=== PATIENT | female | born 1955 | race Caucasian/White ===

== ENCOUNTER 2019-04-23 07:37 | Outpatient (CLI) | payer MEDICARE, OTHER, SELFPAY ==
--- NOTE | 2019-04-23 13:11 | PFTS_ITS ---
Date of Study:04/23/2019 Date of Dictation: MECHANICS: Forced vital capacity (FVC) is normal. Forced expiratory volume in one second (FEV1) is normal. FEV1/FVC is normal. FLOW VOLUME LOOP: Normal. LUNG VOLUMES: Total lung capacity (TLC) is normal. Residual volume (RV) is normal. DIFFUSING CAPACITY FOR CARBON MONOXIDE: Mildly reduced. INTERPRETATION: The pulmonary function tests are normal. Normal lung volumes. Gas exchange (DLCO) is mildly reduced. The DLCO has not been adjusted to the patient's hemoglobin. MTDD
== END 2019-04-23 07:38 | disposition home or self-care (01) ==
PROVIDERS: PCP Family Medicine; Visit Provider Family Medicine
DX: R06.09 Other forms of dyspnea (principal)
CPT/HCPCS: 94010; 94726; 94729

== ENCOUNTER 2019-04-25 14:22 | Emergency (ER) | payer MEDICARE, OTHER, SELFPAY ==
[2019-04-25 14:28] VITALS: BP 160/101; PULSE 78; RESP 20; TEMP 36.7; O2SAT 100; BMI 31.6
--- NOTE | 2019-04-25 14:28 | ED_ITS ---
Entered by Laney Garcia, acting as scribe for Documented by User: Radhika Riddle DO 04/25/19 15:21 HPI - Chest Pain General: Chief Complaint: Chest Pain Stated Complaint: cp Time Seen by Provider: 04/25/19 14:27 Source: patient Mode of arrival: ambulatory Limitations: no limitations History of Present Illness: HPI narrative: 63 yo f came to the er pov for chest pain. Onset was today. Pt states that she has a sharp pain that goes across her chest. Pt said that she was just setting in her chair when she got the sharp pain. She said that she was nauseated and short of breath when that happens. Pt said that this happened first 11/2017. Pt said that the only thing that makes this worse is laying down or taking a deep breath. Pt was diagnosed with the flu about 3 weeks ago. Pts PCP is . complaint: chest pain Timing of current episode: episodic Prior episodes: Yes Onset: during rest Pain location: substernal Pain radiation: none Severity: mild Quality: sharp Relieving factors: nothing Exacerbating factors: other (taking a deep breath and laying down) Context: recent illness (flu) Associated symptoms: Reports dyspnea and nausea; Deny fever(s) Treatment prior to arrival: none Risk Factors: Coronary artery disease risk factors: none Thoracic aortic dissection risk factors: none Related Data: On Oral Contraceptives: No Review of Systems General: Reports: other (negative unless marked) Const: Denies: fever, chills or fatigue ENMT: Denies: throat pain Card: Reports: chest pain and shortness of breath when lying down Resp: Reports: shortness of breath GI: Reports: nausea : Denies: difficulty urinating Musc: Denies: back pain or extremity swelling Skin/Breast: Denies: rash Neuro: Denies: headache, numbness in extremities or weakness in extremities PFSH ED PFSH: Social History Smoking and tobacco status: never smoked Physical Exam Const: COMMON NORMALS: no apparent distress and oriented x3 GENERAL APPEARANCE: cooperative; not in distress HENMT: COMMON NORMALS: normocephalic HEAD & SCALP: normal to inspection and normocephalic MOUTH: oral and palatal mucosa normal and lip normal THROAT: posterior oropharynx normal and tonsils normal Neck/C-Spine: COMMON NORMALS: full ROM, no lymphadenopathy, supple and no meningeal signs GENERAL: Yes normal visual inspection and Yes trachea midline Resp: COMMON NORMALS: normal respiratory effort and clear to auscultation bilaterally EFFORT & INSPECTION: Yes able to speak in complete sentences and No respiratory distress AUSCULTATION: clear to auscultation bilaterally, no rales, no rhonchi and no wheezes Cardio: COMMON NORMALS: regular rate and regular rhythm PALPATION: abnormal PMI (sternum) RATE: regular rate RHYTHM: regular rhythm PERIPHERAL PULSES: radial pulses present and dorsalis pedis pulses present GI: COMMON NORMALS: normal to inspection, nondistended, normoactive bowel sounds and soft to palpation INSPECTION: Yes normal to inspection AUSCULTATION: Yes normoactive bowel sounds PALPATION: Yes soft RECTAL EXAM: deferred : COMMON NORMALS: Yes no CVA tenderness BLADDER/KIDNEY EXAM: Yes no CVA tenderness Back/Pelvis: COMMON NORMALS: no CVA tenderness Extremity: COMMON NORMALS: normal to inspection, full ROM, normal capillary refill, no calf tenderness and no pedal edema Neuro: COMMON NORMALS: oriented x3, CN's II-XII intact bilaterally, moves all extremities and no focal motor deficits MENINGEAL SIGNS: Yes no meningeal signs Skin: COMMON NORMALS: no rashes or lesions noted GENERAL SKIN EXAM: no rashes or lesions noted Course Vital Signs: Vital signs: Vital Signs Temperature 98.1 F 04/25/19 14:28 Pulse Rate 74 04/25/19 18:00 Respiratory Rate 18 04/25/19 18:00 Blood Pressure 141/98 04/25/19 18:00 Pulse Oximetry 96 04/25/19 18:00 MDM - Chest Pain MDM Narrative: Medical decision making narrative: pts HEART score is a 4, however her ecg abnl are unchanged from an ecg done in 12/08/17. her initial trop is very low at 6. her d dimer is negative, Lab Data: Attestation: I reviewed the patient's lab results. Labs: Lab Results 04/25/19 04/25/19 04/25/19 Range/Units 14:48 14:48 14:48 WBC 8.5 (4.0-10.0) 10^3/ uL RBC 4.39 (4.1-5.3) 10^6/u L Hgb 12.8 (11.5-15.3) g/dL Hct 39.7 (37.0-47.0) % MCV 90.4 (81-99) fL MCH 29.2 (28.0-34.0) pg MCHC 32.2 (30.0-36.0) g/dL RDW 13.2 (12.1-15.1) % Plt Count 272 (130-400) 10^3/c mm MPV 10.2 (7.4-10.4) fL Neut % (Auto) 79.6 % Lymph % (Auto) 14.0 % Summers % (Auto) 5.4 % Eos % (Auto) 0.6 % Baso % (Auto) 0.2 % Neut # (Auto) 6.7 (1.8-7.7) 10^3/u L Lymph # (Auto) 1.2 (0.8-4.8) 10^3/u L Summers # (Auto) 0.5 (0.2-0.9) 10^3/u L Eos # (Auto) 0.1 (0.0-0.8) 10^3/u L Baso # (Auto) 0.0 (0.0-0.1) 10^3/u L Nucleated RBC % (a uto) 0 % Nucleated RBCs # 0.0 /100WBC D-Dimer <= 0.27 (0-0.59) ug/mIFE U Sodium 139 (136-145) mmol/L Potassium 3.4 L (3.5-5.1) mmol/L Chloride 100 (98-107) mmol/L Carbon Dioxide 25 (22-29) mmol/L Anion Gap 17.4 (5-19) BUN 22 (8-23) mg/dL Creatinine 0.7 (0.5-0.9) mg/dL GFR Calculation 84.0 L (90-130) mL/min Glucose 111 (65-115) mg/dL Calculated Osmolal ity 285 (285-295) mOsm/k g Calcium 10.0 (8.5-10.5) mg/dL Total Bilirubin 0.4 (0.15-1.2) mg/dL AST 15 (0-32) U/L ALT 19 (0-33) U/L Alkaline Phosphata se 75 (35-105) IU/L Troponin T Baselin e (0-10) ng/mL Troponin T 120 Min poarch (0-10) ng/mL Delta Troponin T (0-10) ABS# Total Protein 7.2 (6.6-8.7) g/dL Albumin 4.5 (3.5-5.2) g/dL Globulin 2.7 (1.3-4.6) g/dL 04/25/19 04/25/19 Range/Units 14:48 16:40 WBC (4.0-10.0) 10^3/ uL RBC (4.1-5.3) 10^6/u L Hgb (11.5-15.3) g/dL Hct (37.0-47.0) % MCV (81-99) fL MCH (28.0-34.0) pg MCHC (30.0-36.0) g/dL RDW (12.1-15.1) % Plt Count (130-400) 10^3/c mm MPV (7.4-10.4) fL Neut % (Auto) % Lymph % (Auto) % Summers % (Auto) % Eos % (Auto) % Baso % (Auto) % Neut # (Auto) (1.8-7.7) 10^3/u L Lymph # (Auto) (0.8-4.8) 10^3/u L Summers # (Auto) (0.2-0.9) 10^3/u L Eos # (Auto) (0.0-0.8) 10^3/u L Baso # (Auto) (0.0-0.1) 10^3/u L Nucleated RBC % (a uto) % Nucleated RBCs # /100WBC D-Dimer (0-0.59) ug/mIFE U Sodium (136-145) mmol/L Potassium (3.5-5.1) mmol/L Chloride (98-107) mmol/L Carbon Dioxide (22-29) mmol/L Anion Gap (5-19) BUN (8-23) mg/dL Creatinine (0.5-0.9) mg/dL GFR Calculation (90-130) mL/min Glucose (65-115) mg/dL Calculated Osmolal ity (285-295) mOsm/k g Calcium (8.5-10.5) mg/dL Total Bilirubin (0.15-1.2) mg/dL AST (0-32) U/L ALT (0-33) U/L Alkaline Phosphata se (35-105) IU/L Troponin T Baselin e 6 (0-10) ng/mL Troponin T 120 Min poarch 6.00 (0-10) ng/mL Delta Troponin T 0 (0-10) ABS# Total Protein (6.6-8.7) g/dL Albumin (3.5-5.2) g/dL Globulin (1.3-4.6) g/dL Imaging Data^: CXR: Radiologist's impression: [address] [address] XRay Report Signed Patient: Anne Alexis IUnit #: [id number] : 4Acct#:[id number] Age/Sex: 63 / FADM Date: 04/25/19 Loc: ERRoom/Bed: Attending Dr: Ordering Provider/Ordering MD: Radhika Riddle DO Date of Service: 04/25/19 Procedure(s): XR chest 1V portable [id number] Accession Number(s): [id number] Report Number: [id number] PROCEDURE INFORMATION: Exam: XR Chest, 1 View Exam date and time: 04/25/2019 2:42 PM Age: 63 years old Clinical indication: Pain; Chest pressure; Additional info: Chest pain TECHNIQUE: Imaging protocol: XR of the chest Views: 1 view. COMPARISON: CR Chest 1 [place] [id number] 12/08/2017 6:24 PM FINDINGS: Lungs: No focal consolidation. Pleural space: No significant pleural effusion. No discernible pneumothorax. Heart/Mediastinum: No cardiomegaly. Bones/joints: Unremarkable for technique. XR/XR chest 1V portable [id number] IMPRESSION: No acute findings. Dictated By:Anjel Cooper MD Signed By:Anjel Cooper MDSigned Date/Time:04/25/191554 DD/ 53 Discharge Plan Discharge Patient Disposition: Home, Self-Care Clinical Impression: Atypical chest pain Condition: Stable Prescriptions: New Adult Aspirin Regimen 81 mg tablet,delayed release (DR/EC) 81 mg PO DAILY Qty: 30 RF: 0 No Action bupropion HCl 100 mg tablet sustained-release 12 hr 100 mg PO QAM RF: 0 losartan-hydrochlorothiazide 50-12.5 mg tablet 1 tab PO DAILY RF: 0 escitalopram oxalate 5 mg tablet 5 mg PO DAILY RF: 0 Discharge Orders: Discharge Order (Routine); Ordered 04/25/19 Ordered By: Francisco Peñaloza Referrals: Carlee Gutierrez MD [Primary Care Provider] - Discharge Diet: Usual diet Discharge Activity: Limit activity as instructed Activity Restrictions/Additional Instructions: Case management will call to set up a stress test. Discharge Date/Time: 04/25/19 18:00 Sign Out Sign Out Data: Patient Sign Out occurred on 04/25/19 at 16:50. Patient's care was discussed, and care was transferred from Radhika Ferrara DO to Francisco Peñaloza DO. Sign Out Comment: waiting for 2 hour troponin, will likely need an outpt stress test Last updated by Radhika Riddle DO at 04/25/19 16:21 Coding Level of Care Code ED Administrative Support Associate for Chg Fwd Exam Comprehensive Documented by User: Francisco Peñaloza DO 04/27/19 01:05 HPI - Chest Pain General: Chief Complaint: Chest Pain Stated Complaint: cp Time Seen by Provider: 04/25/19 14:27 History of Present Illness: HPI narrative: Care assumed at change of shift Dr. Riddle's notes and exam reviewed [facility] ED PFSH: Social History Smoking and tobacco status: never smoked Physical Exam Const: COMMON NORMALS: average body habitus, oriented x3 and alert GENERAL APPEARANCE: cooperative, comfortable, well kempt and well developed NUTRITIONAL APPEARANCE: obese ORIENTATION/CONSCIOUSNESS: Yes awake, Yes oriented to person and Yes oriented to place Neck/C-Spine: COMMON NORMALS: no meningeal signs Resp: COMMON NORMALS: normal respiratory effort, no retractions, no use of accessory muscles and clear to auscultation bilaterally AUSCULTATION: clear to auscultation bilaterally Cardio: COMMON NORMALS: regular rate and regular rhythm RATE: regular rate RHYTHM: regular rhythm HEART SOUNDS: no murmurs GI: COMMON NORMALS: normal to inspection, nondistended, normoactive bowel sounds, soft to palpation and no hepatosplenomegaly PALPATION: Yes soft and Yes no hepatosplenomegaly Extremity: COMMON NORMALS: no clubbing, cyanosis or edema, no calf tenderness and no pedal edema Neuro: COMMON NORMALS: oriented x3 SENSORIUM/ORIENTATION: Yes alert, Yes oriented to person and Yes oriented to place MENINGEAL SIGNS: Yes no meningeal signs Psych: APPEARANCE: Yes well kempt Course ED course: Care assumed a change of shift from Dr. Riddle. Chart reviewed. Second troponin is also negative discussed with the patient states that she had a stress test done about a year ago that was incomplete because he stopped it because she had leg pain and she never had any further follow-up. This time she is doing well I think we can go ahead and discharge her home we will get a get her set up for a sestamibi stress test as an outpatient have her take aspirin daily return if she has problems. Vital Signs: Vital signs: Vital Signs Temperature 98.1 F 04/25/19 14:28 Pulse Rate 74 04/25/19 18:00 Respiratory Rate 18 04/25/19 18:00 Blood Pressure 141/98 04/25/19 18:00 Pulse Oximetry 96 04/25/19 18:00 MDM - Chest Pain Lab Data: Labs: Lab Results 04/25/19 04/25/19 04/25/19 Range/Units 14:48 14:48 14:48 WBC 8.5 (4.0-10.0) 10^3/ uL RBC 4.39 (4.1-5.3) 10^6/u L Hgb 12.8 (11.5-15.3) g/dL Hct 39.7 (37.0-47.0) % MCV 90.4 (81-99) fL MCH 29.2 (28.0-34.0) pg MCHC 32.2 (30.0-36.0) g/dL RDW 13.2 (12.1-15.1) % Plt Count 272 (130-400) 10^3/c mm MPV 10.2 (7.4-10.4) fL Neut % (Auto) 79.6 % Lymph % (Auto) 14.0 % Summers % (Auto) 5.4 % Eos % (Auto) 0.6 % Baso % (Auto) 0.2 % Neut # (Auto) 6.7 (1.8-7.7) 10^3/u L Lymph # (Auto) 1.2 (0.8-4.8) 10^3/u L Summers # (Auto) 0.5 (0.2-0.9) 10^3/u L Eos # (Auto) 0.1 (0.0-0.8) 10^3/u L Baso # (Auto) 0.0 (0.0-0.1) 10^3/u L Nucleated RBC % (a uto) 0 % Nucleated RBCs # 0.0 /100WBC D-Dimer <= 0.27 (0-0.59) ug/mIFE U Sodium 139 (136-145) mmol/L Potassium 3.4 L (3.5-5.1) mmol/L Chloride 100 (98-107) mmol/L Carbon Dioxide 25 (22-29) mmol/L Anion Gap 17.4 (5-19) BUN 22 (8-23) mg/dL Creatinine 0.7 (0.5-0.9) mg/dL GFR Calculation 84.0 L (90-130) mL/min Glucose 111 (65-115) mg/dL Calculated Osmolal ity 285 (285-295) mOsm/k g Calcium 10.0 (8.5-10.5) mg/dL Total Bilirubin 0.4 (0.15-1.2) mg/dL AST 15 (0-32) U/L ALT 19 (0-33) U/L Alkaline Phosphata se 75 (35-105) IU/L Troponin T Baselin e (0-10) ng/mL Troponin T 120 Min poarch (0-10) ng/mL Delta Troponin T (0-10) ABS# Total Protein 7.2 (6.6-8.7) g/dL Albumin 4.5 (3.5-5.2) g/dL Globulin 2.7 (1.3-4.6) g/dL 04/25/19 04/25/19 Range/Units 14:48 16:40 WBC (4.0-10.0) 10^3/ uL RBC (4.1-5.3) 10^6/u L Hgb (11.5-15.3) g/dL Hct (37.0-47.0) % MCV (81-99) fL MCH (28.0-34.0) pg MCHC (30.0-36.0) g/dL RDW (12.1-15.1) % Plt Count (130-400) 10^3/c mm MPV (7.4-10.4) fL Neut % (Auto) % Lymph % (Auto) % Summers % (Auto) % Eos % (Auto) % Baso % (Auto) % Neut # (Auto) (1.8-7.7) 10^3/u L Lymph # (Auto) (0.8-4.8) 10^3/u L Summers # (Auto) (0.2-0.9) 10^3/u L Eos # (Auto) (0.0-0.8) 10^3/u L Baso # (Auto) (0.0-0.1) 10^3/u L Nucleated RBC % (a uto) % Nucleated RBCs # /100WBC D-Dimer (0-0.59) ug/mIFE U Sodium (136-145) mmol/L Potassium (3.5-5.1) mmol/L Chloride (98-107) mmol/L Carbon Dioxide (22-29) mmol/L Anion Gap (5-19) BUN (8-23) mg/dL Creatinine (0.5-0.9) mg/dL GFR Calculation (90-130) mL/min Glucose (65-115) mg/dL Calculated Osmolal ity (285-295) mOsm/k g Calcium (8.5-10.5) mg/dL Total Bilirubin (0.15-1.2) mg/dL AST (0-32) U/L ALT (0-33) U/L Alkaline Phosphata se (35-105) IU/L Troponin T Baselin e 6 (0-10) ng/mL Troponin T 120 Min poarch 6.00 (0-10) ng/mL Delta Troponin T 0 (0-10) ABS# Total Protein (6.6-8.7) g/dL Albumin (3.5-5.2) g/dL Globulin (1.3-4.6) g/dL Discharge Plan Discharge Patient Disposition: Home, Self-Care Clinical Impression: Atypical chest pain Condition: Stable Prescriptions: New Adult Aspirin Regimen 81 mg tablet,delayed release (DR/EC) 81 mg PO DAILY Qty: 30 RF: 0 No Action bupropion HCl 100 mg tablet sustained-release 12 hr 100 mg PO QAM RF: 0 losartan-hydrochlorothiazide 50-12.5 mg tablet 1 tab PO DAILY RF: 0 escitalopram oxalate 5 mg tablet 5 mg PO DAILY RF: 0 Discharge Orders: Discharge Order (Routine); Ordered 04/25/19 Ordered By: Francisco Peñaloza Referrals: Carlee Gutierrez MD [Primary Care Provider] - Discharge Diet: Usual diet Discharge Activity: Limit activity as instructed Activity Restrictions/Additional Instructions: Case management will call to set up a stress test. Discharge Date/Time: 04/25/19 18:00 Sign Out Sign Out Data: Patient Sign Out occurred on 04/25/19 at 16:50. Patient's care was discussed, and care was transferred from Radhika Ferrara DO to Francisco Peñaloza DO. Sign Out Comment: waiting for 2 hour troponin, will likely need an outpt stress test Last updated by Radhika Riddle DO at 04/25/19 16:21 Coding Level of Care Code ED Administrative Support Associate for Chg Fwd Exam Comprehensive The documentation recorded by the [facility] Stephanie Lyn, accurately reflects the service I personally performed and the decisions made by , Radhika Riddle DO Apr 25, 2019 14:22
--- NOTE | 2019-04-25 14:40 | ECG_ITS ---
Measurements Intervals [place] Rate: 71 P: 62 KS: 151 QRS: 19 QRSD: 79 T: -2 QT: 365 QTc: [address] DEVIATION AND MODERATE T-WAVE ABNORMALITY, CONSIDER ANTEROLATERAL ISCHEMIA [-0 [-0.1+ mV T WAVE IN V3-V6] ST DEVIATION AND MODERATE T-WAVE ABNORMALITY, CONSIDER INFERIOR ISCHEMIA [-0.1+ mV T WAVE IN II/aVF] Compared to ECG 12/08/2017 17:44:07 No significant changes Electronically Signed On 04-26-2019 17:20:42 CDT by Brennen Keita M.D. [email or web address]
--- NOTE | 2019-04-25 14:40 | XRR_ITS ---
PROCEDURE INFORMATION: Exam: XR Chest, 1 View Exam date and time: 04/25/2019 2:42 PM Age: 63 years old Clinical indication: Pain; Chest pressure; Additional info: Chest pain TECHNIQUE: Imaging protocol: XR of the chest Views: 1 view. COMPARISON: CR Chest 1 [place] [id number] 12/08/2017 6:24 PM FINDINGS: Lungs: No focal consolidation. Pleural space: No significant pleural effusion. No discernible pneumothorax. Heart/Mediastinum: No cardiomegaly. Bones/joints: Unremarkable for technique. XR/XR chest 1V portable [id number] IMPRESSION: No acute findings.
[2019-04-25 14:55] LABS: Basophils % 0.2 %; Eosinophils # 0.1 10^3/uL (0.0-0.8); Eosinophils % 0.6 %; Hematocrit 39.7 % (37.0-47.0); Hemoglobin 12.8 g/dL (11.5-15.3); Lymphocytes # 1.2 10^3/uL (0.8-4.8); Mean Corpuscular HGB Conc 32.2 g/dL (30.0-36.0); Mean Corpuscular Hemoglobin 29.2 pg (28.0-34.0); Mean Corpuscular Volume 90.4 fL (81-99); Mean Platelet Volume 10.2 fL (7.4-10.4); Monocytes # 0.5 10^3/uL (0.2-0.9); Monocytes % 5.4 %; Neutrophils # 6.7 10^3/uL (1.8-7.7); Neutrophils % 79.6 %; Nucleated Red Blood Cells % 0 %; Platelet Count 272 10^3/cmm (130-400); Red Blood Count 4.39 10^6/uL (4.1-5.3); Red Cell Distribution Width 13.2 % (12.1-15.1); White Blood Count 8.5 10^3/uL (4.0-10.0)
[2019-04-25] MEDS: nitroglycerin 0.4 mg sublingual Tablet SUBLINGUAL (15:10)
[2019-04-25 15:11] VITALS: RESP 18; O2SAT 95
[2019-04-25] MEDS: morphine 4 mg/mL SDV 1 mL IVP (15:11)
[2019-04-25 15:12] LABS: Alanine Aminotransferase 19 U/L (0-33); Albumin Level 4.5 g/dL (3.5-5.2); Anion Gap 17.4 (5-19); Aspartate Amino Transferase 15 U/L (0-32); Blood Urea Nitrogen 22 mg/dL (8-23); Carbon Dioxide 25 mmol/L (22-29); Chloride 100 mmol/L (98-107); D Dimer <= 0.27 ug/mIFEU (0-0.59); Glucose 111 mg/dL (65-115); Osmolality Calculated 285 mOsm/kg (285-295); Potassium 3.4 mmol/L (3.5-5.1); Sodium 139 mmol/L (136-145); Total Bilirubin 0.4 mg/dL (0.15-1.2); Total Protein 7.2 g/dL (6.6-8.7)
[2019-04-25 15:13] LABS: Alkaline Phosphatase 75 IU/L (35-105); Globulin 2.7 g/dL (1.3-4.6)
[2019-04-25 15:14] LABS: Troponin(5th) Baseline 6 ng/mL (0-10)
[2019-04-25] MEDS: aspirin 81 mg Chew Tablet 324 MG PO (15:17)
[2019-04-25] MEDS: ondansetron 2 mg/ML SDV 2 mL 4 MG IVP (15:20)
--- NOTE | 2019-04-25 16:40 | ECG_ITS ---
Measurements Intervals [place] Rate: 67 P: 55 ME: 144 QRS: 14 QRSD: 88 T: -50 QT: 378 QTc: 402 SINUS RHYTHM MODERATE T-WAVE ABNORMALITY, CONSIDER ANTEROLATERAL ISCHEMIA [-0.1+ mV T WAVE IN V3-V6] MODERATE T-WAVE ABNORMALITY, CONSIDER INFERIOR ISCHEMIA [-0.1+ mV T WAVE IN II II/aVF] Compared to ECG 12/08/2017 17:44:07 No significant changes Electronically Signed On 04-26-2019 17:24:14 CDT by Brennen Keita M.D. [email or web address]
[2019-04-25 17:08] LABS: Troponin 5 2HR Delta 0 ABS# (0-10)
[2019-04-25 18:00] VITALS: BP 141/98; PULSE 74; RESP 18; O2SAT 96
--- NOTE | 2019-04-28 14:42 | DCPLANNER ---
manager [employer] had an order for an outpatient stress test. [employer] faxed order to centralized scheduling, will call for appointment information.
--- NOTE | 2019-05-07 08:55 | DCPLANNER ---
Patient has an outpatient stress test scheduled for Friday, May 14, 2019 at 10:45, centralized scheduling will call patient with appointment information.
--- NOTE | 2019-05-28 15:21 | DCPLANNER ---
Stress test scheduled for patient was cancelled.
== END 2019-04-25 18:00 | disposition home or self-care (01) ==
PROVIDERS: Emergency Medicine; Emergency Provider Family Medicine; PCP Family Medicine
DX: R07.89 Other chest pain (principal); E66.9 Obesity, unspecified; Z68.31 Body mass index [BMI] 31.0-31.9, adult
CPT/HCPCS: 12345; 36415; 71045; 80053; 84484; 85025; 85378; 93005; 96374; 96375; 99281; 99284; J2270; J2405

== ENCOUNTER → 2021-06-27 10:33 | Outpatient (BNVA) | payer MEDICARE, OTHER, SELFPAY | PROVIDERS: PCP Family Medicine; Referring Provider Family Medicine; Visit Provider Otolaryngology | DX: H93.13 Tinnitus, bilateral (principal); H90.0 Conductive hearing loss, bilateral; H61.23 Impacted cerumen, bilateral | CPT/HCPCS: 69210; 99203 ==

== ENCOUNTER → 2023-05-06 13:04 | Outpatient (BNVA) | payer MEDICARE, OTHER, SELFPAY | PROVIDERS: PCP Family Medicine; Visit Provider Otolaryngology | DX: H73.013 Bullous myringitis, bilateral (principal); H61.23 Impacted cerumen, bilateral | CPT/HCPCS: 69210; 99213 ==

== ENCOUNTER → 2023-05-20 13:22 | Outpatient (BNVA) | payer MEDICARE, OTHER, SELFPAY | PROVIDERS: PCP Family Medicine; Visit Provider Otolaryngology | DX: H73.013 Bullous myringitis, bilateral (principal) | CPT/HCPCS: 99212; 99213 ==